=== PATIENT | male | born 1990 | race Two or more races ===

== ENCOUNTER 2023-03-09 06:00 | Day surgery (SDC) | payer OTHER ==
[~2023-03-09] VITALS: Ht 165.1 cm; Wt 68.0 kg
[2023-03-09] MEDS ORDERED: COLACE100 MG PO (10:13)
[2023-03-09] MEDS ORDERED: TRAM1TAB98 PO (10:13)
[2023-03-09] MEDS ORDERED: NEURONTIN300 MG PO (10:13)
== END 2023-03-09 15:10 | disposition home or self-care (01) ==
LOC: CIR.AMB 06:00
PROVIDERS: ATTEND Surgery
DX: K62.0 Anal polyp (principal); K62.1 Rectal polyp; K62.89 Other specified diseases of anus and rectum; K62.5 Hemorrhage of anus and rectum; K64.1 Second degree hemorrhoids; Z20.822 Contact with and (suspected) exposure to COVID-19; I10 Essential (primary) hypertension